=== PATIENT | female | born 2005 | race Caucasian/White ===

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

== ENCOUNTER 2023-01-28 13:34 | Emergency (ER) | payer BC ==
[2023-01-28] MEDS ORDERED: Sodium Chloride 0.9% 2.5 ML Syringe FLUSH PRN (14:24)
[2023-01-28] MEDS ORDERED: Sodium Chloride 0.9% 10 ML Syringe FLUSH PRN (14:24)
[2023-01-28] MEDS ORDERED: Sodium Chloride 0.9% 1,000 ML IV STA (14:25)
[2023-01-28 14:36] LABS: BASOPHILS PERCENT AUTO 0.3 % (0.0-1.5); EOSINOPHILS ABSOLUTE AUTO 0.1 K/uL (0.0-0.7); EOSINOPHILS PERCENT AUTO 1.1 % (0.0-7.0); HEMATOCRIT 39.3 % (36.0-46.0); HEMOGLOBIN 13.3 g/dL (12.0-16.0); LYMPHOCYTES ABSOLUTE AUTO 2.6 K/uL (0.6-2.4); LYMPHOCYTES PERCENT AUTO 34.8 % (16.0-40.0); MEAN CORPUSCULAR HEMOGLOBIN 30.4 pg (27.0-32.0); MEAN CORPUSCULAR HGB CONC 33.8 g/dL (31.0-37.0); MEAN CORPUSCULAR VOLUME 89.7 fL (80.0-98.0); MONOCYTES ABSOLUTE AUTO 0.4 K/uL (0.0-0.8); MONOCYTES PERCENT AUTO 5.8 % (0.0-15.0); NEUTROPHILS ABSOLUTE AUTO 4.3 K/uL (1.4-5.7); PLATELET COUNT,PLT 264 K/uL (150-400); RED BLOOD CELL COUNT 4.38 M/uL (4.30-5.90); WHITE BLOOD CELL COUNT,WBC 7.41 K/uL (4.0-11.0)
[2023-01-28 14:43] LABS: APPEARANCE,URINE CLEAR; BILIRUBIN,URINE NEGATIVE (NEGATIVE); COLOR,URINE YELLOW; GLUCOSE,URINE NEGATIVE (NEGATIVE); KETONES,URINE NEGATIVE (NEGATIVE); LEUKOCYTE ESTERASE,URINE NEGATIVE (NEGATIVE); NITRITE,URINE NEGATIVE (NEGATIVE); OCCULT BLOOD,URINE NEGATIVE (NEGATIVE); PROTEIN,URINE NEGATIVE (NEGATIVE); UROBILINOGEN,URINE 0.2 EU/dL (<2.0)
[2023-01-28 15:10] LABS: A/G RATIO 1.2 (0.9-1.6); ALBUMIN 4.4 g/dL (3.4-5.0); BILIRUBIN TOTAL 0.3 mg/dL (0.2-1.0); CALCIUM 9.2 mg/dL (8.5-10.1); CARBON DIOXIDE,CO2 23.4 mmol/L (21.0-32.0); CREATININE 0.7 mg/dL (0.6-1.0); EST CRCL DRUG DOSING (CG) 102.24 mL/min; POTASSIUM,K 3.9 mmol/L (3.5-5.1)
== END 2023-01-28 16:12 | disposition home or self-care (01) ==
LOC: MW.ED 13:34
DX: R10.31 Right lower quadrant pain (principal); R10.32 Left lower quadrant pain; M54.50 Low back pain, unspecified
CPT/HCPCS: 36415; 80053; 81003; 81025; 83690; 85025; 96360; 99284; J3490; J7030; 99283

== ENCOUNTER 2023-12-24 17:44 | Emergency (ER) | payer BC, OTHER ==
[2023-12-24] MEDS: Amoxicillin/Clavulanate K 875-125 MG Tab PO ONE (19:40)
[2023-12-24] MEDS: Diphtheria,Pertussis(Acell),Tetanus Vaccine 0.5 ML Syringe IM ONE (19:40)
[2023-12-24] MEDS: Lidocaine/Epineph/Tetracaine 3 ML Syringe TOP ONE (19:41)
[2023-12-24] MEDS: Rabies Immune Globulin/PF (HyperRAB) 300 UNIT/ML 1 ML SDV IM ONE (20:16)
[2023-12-24] MEDS: Rabies Vaccine (Avian) 2.5 Unit Inj Kit IM ONE (20:17)
== END 2023-12-24 21:00 | disposition home or self-care (01) ==
LOC: MW.ED 17:44
DX: S61.254A Open bite of right ring finger without damage to nail, initial encounter (principal); Z79.899 Other long term (current) drug therapy; Z23 Encounter for immunization; W55.01XA Bitten by cat, initial encounter
CPT/HCPCS: 90375; 90471; 90675; 90715; 96372; 99283; A9270

== ENCOUNTER 2023-12-27 17:51 | Emergency (ER) | payer BC, OTHER ==
[2023-12-27] MEDS: Rabies Vaccine (Avian) 2.5 Unit Inj Kit IM ONE (18:53)
== END 2023-12-27 19:18 | disposition left against medical advice (07) ==
LOC: MW.ED 17:51
DX: Z23 Encounter for immunization (principal)
CPT/HCPCS: 90471; 90675; 99281-25

== ENCOUNTER 2023-12-31 17:47 | Emergency (ER) | payer BC, OTHER ==
[2023-12-31] MEDS: Rabies Vaccine (Avian) 2.5 Unit Inj Kit IM ONE (18:25)
== END 2023-12-31 18:33 | disposition left against medical advice (07) ==
LOC: MW.ED 17:47
DX: Z23 Encounter for immunization (principal)
CPT/HCPCS: 90471; 90675; 99281-25